=== PATIENT | female | born 1955 | race African-American/Black ===

== ENCOUNTER 2025-06-25 10:54 | Outpatient (REF) | payer MEDICAID, SELFPAY ==
[2025-06-25 17:53] LABS: MANUAL DIFF FLAG NO
[2025-06-25 18:23] LABS: Appearance Urine Clear; Glucose Urine UA Negative (Negative); PH 5.5 (5.0-9.0); Specific Gravity - Urine 1.015 (1.005-1.025); UMIC TRIGGER UACC YES
[2025-06-25 18:31] LABS: Hematocrit 35.8 % (37.0-47.0); Hemoglobin 11.7 g/dl (12.0-16.0); Imm Gran Abs Auto 0.18 X10*3/uL (0.00-0.03); Imm Gran Pct Auto 1.6 % (0.0-0.4); Lymphocytes Absolute Auto 1.3 X10*3/uL (1.2-4.9); Mean Corpuscular HGB Conc 32.7 g/dl (31.0-35.0); Mean Corpuscular Hemoglobin 31.0 pg (27.0-33.0); Mean Corpuscular Volume 94.7 fL (80.0-98.0); NRBC Abs Auto 0.000 X10*3/uL (0.0-0.012); NRBC Pct Auto 0.0 /100WBC (0.0-0.2); Platelet Count 296 X10*3/uL (160-400); Red Blood Count 3.78 X10*6/uL (4.20-5.50); White Blood Count 11.0 X10*3/uL (4.8-10.8)
[2025-06-25 18:39] LABS: Alanine Aminotransferase 13 U/L (0-31); Albumin Level 4.5 g/dL (3.5-5.0); Alkaline Phosphatase 55 U/L (39-117); Anion Gap 13 (12-20); Aspartate Amino Transferase 34 U/L (5-31); Blood Urea Nitrogen 23 mg/dL (9-16); Calcium 9.6 mg/dL (8.4-10.2); Carbon Dioxide 23 mmol/L (22-29); Chloride 109 mmol/L (96-108); Cholesterol 160 mg/dL (<200); Estimated Glomerular Filt Rate > 60; HDL Cholesterol 42 mg/dL (>40); Magnesium 2.1 mg/dL (1.6-2.6); Potassium 4.4 mmol/L (3.3-5.1); Sodium 141 mmol/L (135-145); Total Protein 7.7 g/dL (6.5-8.0); Triglycerides 104 mg/dL (<150)
[2025-06-25 18:44] LABS: Vitamin B12 809 pg/mL (200-900)
[2025-06-25 19:05] LABS: UACC Culture Trigger YES
[2025-06-25 19:11] LABS: Free T4 (Free Thyroxine) 1.35 ng/dL (0.71-1.85)
[2025-06-27 03:52] LABS: Syphilis Screen Nonreactive (Nonreactive)
[2025-06-27 04:28] LABS: HBS Num1 20.76 mIU/mL (0-7.99); HBsAGNum1 0.48 S/CO (0.00-0.99); HIV Num 1 0.06 S/CO (0.00-0.99); Hepatitis B Surface Antigen Negative (Negative); ~HepC Num1 0.31 S/CO (0.00-0.79); ~Hepatitis B Surface Antibody REACTIVE (Nonreactive); ~Hepatitis C Antibody Nonreactive (Nonreactive)
[2025-07-01 14:23] LABS: VITAMIN D (1,25 OH) D3 60 pg/mL; Vit D (1,25-Dihydroxy) Total 60 pg/mL (18-72); Vitamin D (1,25 OH) D2 <8 pg/mL
== END 2025-06-25 10:55 | disposition home or self-care (01) ==
LOC: HO.HKASLDS 10:54
PROVIDERS: PCP Student in an Organized Health Care Education/Training Program; Visit Provider Student in an Organized Health Care Education/Training Program
DX: Z13.9 Encounter for screening, unspecified (principal); R10.9 Unspecified abdominal pain; R63.6 Underweight; Z59.41 Food insecurity; Z59.819 Housing instability, housed unspecified
CPT/HCPCS: 36415; 80053; 80061; 81001; 82607; 82652; 83036; 83735; 84439; 84443; 85025; 86706; 86780; 86803; 87086; 87340; 87389; 99202

== ENCOUNTER 2025-06-25 10:54 | Outpatient (AMB) | payer MEDICAID, SELFPAY ==
--- NOTE | 2025-06-25 11:19 | A.OFFPC_ITS ---
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 Left flank pain: The patient reports persistent left flank pain on her side, specified as the left flank. The pain is also located in her back and is described as moving and sometimes radiating down her leg. This is associated with pain in one hand and leg. Generalized weakness and deconditioning: The patient has difficulty with movement and requires help at home. Gastrointestinal and Genitourinary Symptoms: She was seen on April 10, 2025, for vomiting and diarrhea. She currently experiences nausea with vomiting when riding in a car. Her oral intake is poor, consisting mainly of bread three times a day. She reports frequent urination, about every 5 to 60 minutes, and also experiences tenesmus, a sensation of needing to defecate without being able to do so. Other complaints and history: The patient reports headaches. She is blind in her right eye. She immigrated from [facility] in April 2024 and previously lived in [place] before moving to the current state with her son. Surgical History: - No prior surgical history was discusse d. Medications: - No current medications were discussed. Social History: - Immigration: Patient is an immigrant f rom [place], [place], [place] in the [place]. - Language: Primary language is Occitan. - Living Situation: Recently moved from [place] to live with her son, Breanne. - Functional Status: Requires assistance at home and has difficulty with mobility. - Caregiver: Her son, Breanne, serves as h primary caregiver. - Social Support: The son reports signif icant stress related to caregiving and family conflict regarding the patient's living arrangements. - Nutrition: Reports poor appetite with a diet consisting mainly of bread, three times a day. Family History: - No family history was discussed. Diagnostic Results: - Previous visit documentation from 03/20 indicates a visit for vomiting and diarrhea. - Blood work was last performed on 01/08; results were not reviewed. Past Medical History - Blindness, right eye - History of visit for vomiting and diar yamilet on April 10, 2025 Health Maintenance - The patient is establishing care. - Comprehensive blood work has been orde red to establish a baseline. - Referrals will be placed for [facility] and community navigators to address social and functional needs. COUNT INCLUDES [facility] Medical History (Updated 07/01/25 @ 12:04 by Shiva Marquez MD) Underweight Family History (Updated 06/25/25 @ 11:20 by Linette Youssef CMA) Mother No problems noted. Father No problems noted. Social History Housing: Apartment Patient Tobacco Use Status: Never used Tobacco service: No Current occupational status: retired Cognitive needs: Yes (needs wheelchair, cane) Hearing needs: No Vision needs: No Questionnaire PHQ-9 Over the last 2 weeks, how often have you been bothered by any of the following problems? 1. Little interest or pleasure in doing things: more than half the days 2. Feeling down, depressed, or hopeless: more than half the days 3. Trouble falling or staying asleep, or sleeping too much: not at all 4. Feeling tired or having little energy: not at all 5. Poor appetite or overeating: nearly every day 6. Feeling bad about yourself - or that you are a failure or have let yourself or your family down: not at all 7. Trouble concentrating on things, such as reading the newspaper or watching television: not at all 8. Moving or speaking so slowly that other people could have noticed. Or the opposite - being so fidgety or restless that you have been moving around a lot more than usual: more than half the days 9. Thoughts that you would be better off or of hurting yourself in some way: not at all Total score: 9 Depression Screening Interpretation: Negative Depression Screening Done: Yes Source: Developed by Drs. Jus Jones, Ronaldo Kenny and colleagues, with an educational greg from [employer]. Thrive Questionnaire I am a: Parent/Caregiver What is your living situation today?: I have a steady place to live Within the past 12 months, did the food you bought not last and you didn't have the money to get more?: Sometimes True Within the past 12 months, did you worry whether your food would run out before you got money to buy more?: Sometimes True Do you have trouble paying for medicines?: No Do you have trouble getting transportation to medical appointments?: No Do you have trouble paying your heating and electricity bill?: No Do you have trouble taking care of your child, family member or friend?: I choose not to answer this question Are you currently unemployed and looking for a job?: I choose not to answer this question Are you interested in more education?: No Please select the resources that you would like help with: Housing/Alf, Food and Care for elder or disabled Currently or been in a relationship where the following occur: No concerns reported THRIVE Score: 2 AUDIT C Alcohol Use Questionnaire (AUDIT-C) 1. How often do you have a drink containing alcohol?: Never Total Score: 0 WILBERTO-7 AMB Questionnaire WILBERTO-7 Feeling nervous, anxious, or on edge: 2 = More than half the days Not being able to stop or control worryin = Several days Worrying too much about different things: 1 = Several days Trouble relaxin = Several days Being so restless that it is hard to sit still: 1 = Several days Becoming easily annoyed or irritable: 0 = Not at all Feeling afraid as if something awful might happen: 2 = More than half the days Total WILBERTO-7 score (0-4 normal; 5-9 mild; 10-14 moderate; 15-21 severe): 8 Source: Developed by Drs. Jus Jones, Ronaldo Kenny and colleagues, with an educational greg from [employer]. Review of Systems Narrative Review of Systems - Constitutional: Reports poor appetite and difficulty with mobility. - Eyes: Reports blindness in the right eye. - Gastrointestinal: Reports motion sickness with vomiting during car rides and a sensation of incomplete evacuation (tenesmus). She has a history of vomiting and diarrhea. - Genitourinary: Reports urinary frequency, occurring every 5 to 60 minutes. - Musculoskeletal: Reports side pain, back pain, and pain in one hand and leg. The side pain radiates down her leg. - Neurological: Reports headaches. 10-point ROS reviewed and negative except as noted in HPI Physical exam (Primary Care) Vital Signs: Last Vital Signs Temp 97.7 F 06/25/25 11:24 Pulse 82 06/25/25 11:24 Resp 16 06/25/25 11:24 BP 140/65 H 06/25/25 11:24 Pulse Ox 99 06/25/25 11:24 Oxygen Delivery Method Room Air 06/25/25 11:24 BMI result Body Mass Index 15.2 Tobacco/Smoking Status: Tobacco use Status Tobacco use date assessed 06/25/25 06/25/25 11:22 Patient Tobacco Use Status Never used Tobacco 06/25/25 11:22 PHQ-9: PHQ-9 Score PHQ-9: Total score 9 06/28/25 10:55 Depression Screening Interpretation: Negative Currently or been in a relationship where the following occur: No concerns reported Narrative Physical Exam General: Well-appearing, in no acute distress. Vital signs: Within normal limits. HEENT: Normocephalic, atraumatic. PERRLA, EOMI. Conjunctiva clear, sclera anicteric. Oropharynx clear, mucous membranes moist. TMs intact bilaterally. Note: Patient is blind in the right eye. Neck: Supple, no lymphadenopathy, no thyromegaly, no JVD or carotid bruits. Cardiovascular: RRR, normal S1/S2, no murmurs, rubs, or gallops. Peripheral pulses 2+ and symmetric. No edema. Respiratory: Lungs clear to auscultation bilaterally, no wheezes, rales, or rhonchi. Normal effort. Abdomen: Soft, non-tender, non-distended. Normoactive bowel sounds. No hepatosplenomegaly, no masses. Reports left side flank pain that travels and occasional back pain. MSK: Full range of motion, no joint swelling or deformity. Normal gait. Reports difficulty moving and requires assistance at home. Skin: Warm, dry, intact. No rashes, lesions, or pallor. Neuro: Alert and oriented x3. Cranial nerves II-XII intact. Strength 5/5 throughout. Sensation intact. Reflexes 2+ symmetric. Normal coordination and gait. Psych: Appropriate mood and affect. Normal judgment and insight. Coding Level of Care Code New Pt Level 4 (51982) Diagnoses Left flank pain R10.9 Food insecurity Z59.41 Housing insecurity Z59.819 Underweight R63.6 Assessment & Plan Assessment & Plan (1) Left flank pain: Code(s): R10.9 - Unspecified abdominal pain (2) Food insecurity: Code(s): Z59.41 - Food insecurity (3) Housing insecurity: Code(s): Z59.819 - Housing instability, housed unspecified (4) Underweight: Code(s): R63.6 - Underweight Category: Medical Plan Consent Verbal consent was obtained from the patient's son, acting as a social media marketing specialist and proxy, for a physical examination and to proceed with blood work. He also consented to have the patient's prior medical documentation scanned into the electronic medical record. Patient was informed and verbally consented to the use of an ambient scribe for clinic note documentation during this visit. Plan 1. Left Flank Pain, Unspecified - Will order blood work for further investigation. - Plan to review previous medical records once they are scanned into the system. - Patient to follow up in two weeks to discuss results. 2. Need For Assistance With Personal Care - Will place a referral for AUTOMATIC LEHR OPERATOR ([employer]) services to provide support at home. - Will place a referral for community navigators to contact the family and provide additional services. 3. Establishment Of Care - Will obtain comprehensive blood work. - Will review prior medical documentation from her home country and previous [place] providers. - Patient will follow up in two weeks. Discussion Notes I discussed the plan with the patient's son, who translated for the patient. I explained that we would start by ordering blood work to assess her overall health. I informed him that we would scan her previous medical records to better understand her history. Given her need for assistance at home, I have initiated referrals for AUTOMATIC LEHR OPERATOR services and to community navigators for additional support, and advised him to stay by the phone for calls regarding these services. A follow-up visit is scheduled in two weeks to review the results and determine the next steps in her care. Patient Instructions - Go to the lab to have blood work done today. - We will scan your previous medical documents into our system for review. - Please wait by your phone for calls from our partners who will help arrange for home assistance (AUTOMATIC LEHR OPERATOR services) and other community services. - Please return for a follow-up visit in two weeks to discuss your lab results. Medical Decision Making The patient is a 69-year-old female, new to the practice, presenting with a constellation of non-specific symptoms including left flank pain, weakness, headaches, and poor nutrition. The clinical picture is complicated by a language barrier, with her son acting as social media marketing specialist, and a complex social situation as a recent immigrant with debility. The initial approach is to establish a baseline health status and investigate potential organic causes for her symptoms. Comprehensive blood work is ordered to screen for metabolic, infectious, or hematologic abnormalities that could explain her weakness, pain, and poor appetite. Given her functional decline and need for assistance, referrals for AUTOMATIC LEHR OPERATOR and community navigator services are critical to ensure her safety and pro vide support. Reviewing her prior medical records is essential for continuity of care. The plan is to reassess in two weeks with the lab results to formulate a more targeted diagnostic and treatment plan. Total time spent caring for the patient today was 30 minutes. This includes time spent before the visit reviewing the chart, time spent documenting, and time spent reviewing laboratory results, diagnostic imaging, medications, performing a medically necessary evaluation, counseling on diagnoses, care coordination, ordering appropriate tests, ordering appropriate medications, review of tests performed by other providers, reporting test results with the patient, communication with other healthcare providers. Orders: Orders Complete Blood Count Auto Diff 06/25/25 Z13.9 - Encounter for screening, unspecified Comprehensive Met. Panel 06/25/25 Z13.9 - Encounter for screening, unspecified Hepatitis B Surface Antibody 06/25/25 Z13.9 - Encounter for screening, unspecified Hepatitis C Antibody 06/25/25 Z13.9 - Encounter for screening, unspecified Vitamin D 1,25 dihydroxy 06/25/25 Z13.9 - Encounter for screening, unspecified Hemoglobin A1c 06/25/25 Z13.9 - Encounter for screening, unspecified Hepatitis B Surface Antigen 06/25/25 Z13.9 - Encounter for screening, unspecified HIV Ab/Ag 06/25/25 Z13.9 - Encounter for screening, unspecified Lipid Panel 06/25/25 Z13.9 - Encounter for screening, unspecified Magnesium 06/25/25 Z13.9 - Encounter for screening, unspecified Syphilis Screen 06/25/25 Z13.9 - Encounter for screening, unspecified TSH reflex Free T4 06/25/25 Z13.9 - Encounter for screening, unspecified UA CC w/rflx Micro + Cult 06/25/25 Z13.9 - Encounter for screening, unspecified Vitamin B12 06/25/25 Z13.9 - Encounter for screening, unspecified
[2025-06-25 11:24] VITALS: BP 140/65; PULSE 82; RESP 16; TEMP 36.5; O2SAT 99; BMI 15.2
--- OUTSIDE RECORDS SUMMARY | 2025-06-25 13:08 | XMS_ITS | Clinical Summary ---
Author Organization [facility] Address [address] [place] [address] Care Team Providers Care Ward Supervisor Name Role Phone Unavailable Primary Care Provider Unavailabl e Source Comments PLEASE NOTE, if this patient is a minor, it may be UNLAWFUL to discuss sensitive information that is contained in these records (such as FAMILY PLANNING, MENTAL HEALTH or SUBSTANCE ABUSE) with the minor patient's parent or other person without the patient's specific authorization.[facility] Medications MISCELLANEOUS MEDICAL SUPPLY MISCIndication s:Underweight by miscellaneous route 2 (two) times daily Dx: underweight, HORTENCIA: 99, Supply: nutritional supplement. 100 Each 5 5 Active acetaminophen (TYLENOL) 325 mg tabletIndicati ons:Generalize d pain Take 2 Tablets by mouth every 6 (six) hours as needed for pain. 30 Tablet 5 Active TOBRADEX 0.3-0.1 % ophthalmic ointmentIndica tions:Burning sensation of eye Place into both eyes 3 (three) times daily. 3.5 g 2 5 Active loratadine (CLARITIN) 10 mg tabletIndicati ons:Burning sensation of eye TAKE 1 TABLET BY MOUTH ONCE DAILY NEEDED FOR ALLERGIES 90 Tablet 5 Active Active Problems Problem Noted Date Diagnosed Date Body mass index (BMI) less than 16.5 03/16/2025 Nephrolithiasis 01/08/2025 Primary hypertension 01/08/2025 Impaired vision 01/08/2025 Resolved Problems Problem Noted Date Diagnosed Date Resolved Date Pain in eye 01/08/2025 01/08/2025 Social History Tobacco Use Types Packs/Day Years Used Date Smoking Tobacco: Never Assessed Comments Unknown Sex and Gender Information Value Date Recorded Sex Assigned at Female 01/08/2025 8:20 AM PDT Legal Sex Female 7:03 AM PDT Gender Identity Female 01/08/2025 8:20 AM PDT Sexual Orientation Straight 01/08/2025 8: 20 AM PDT Last Filed Vital Signs Vital Sign Reading Time Taken Comments Blood Pressure 112/58 01/08/2025 9:31 AM EDT Pulse 89 01/08/2025 9:31 AM EDT Temperature 36.7 C (98.1 F) 01/08/2025 9:31 AM EDT Respiratory Rate 16 01/08/2025 9:31 AM EDT Oxygen Saturation 99% 01/08/2025 9:31 AM EDT Inhaled Oxygen Concentration - - Weight 29.8 kg (65 lb 12.8 oz) 01/08/2025 9:31 A M EDT Height 144.8 cm (4' 9 ) 01/08/2025 9:31 AM EDT Body Mass Index 14.24 01/08/2025 9:31 AM EDT Plan of Treatment Health Maintenance Due Date Last Done Comments Tobacco Screening 1954 Imm-DTaP/Tdap/Td (1 - Tdap) 1973 Breast Cancer Screening (Mammogram) 1994 CT Colonography 1999 Colonoscopy 1999 Colorectal Cancer Screening 1999 FIT/gFOBT 1999 Fecal DNA 1999 Flexible Sigmoidoscopy 1999 Imm-Pneumococcal 50+ (1 of 1 - PCV) 2004 Imm-Zoster, Recombinant (1 of 2) 2004 Bone Density Screening 2019 Falls Prevention 2019 Alcohol and Drug Screen 2024 Depression Annual Screen 2024 Ulb-VTEUT-33 ( season) 2025 Imm-Influenza (#1) 2025 Diabetes Screening 01/09/2028 01/08/2025, 0 01/08/2025, 11/14/2024 Lipid Screening 01/09/2028 01/08/2025 Hepatitis B Screening Completed 01/08/2025, 025 Hepatitis C Screening Completed 01/08/2025 Procedures Procedure Name Priority Date/Time Associated Diagnosis Comments OTHER ORDERS SCANNED DOCUMENT 04/30/2025 3:00 AM EDT HEPATITIS B SURF ANTIBODY HBSAB Routine 01/08/2025 10:48 AM EDT Screening for viral disease HEPATITIS C AB W/RFLX HCV RNA, QT, RT PCR Routine 01/08/2025 10:48 AM EDT Screening for viral disease HEMOGLOBIN GLYCOSYLATED A1C Routine 01/08/2025 10:48 AM EDT Weakness LIPID PANEL Routine 01/08/2025 10:48 AM EDT Weakness from Last 3 Months or Most Recently Relevant to Health Maintenance Results * OTHER ORDERS SCANNED DOCUMENT (04/30/2025 3:00 AM EDT) 04/30/2025 3:00 AM EDT Juan Carlos Baker CNC MACHINE OPERATOR SCAN OTHER ORDERS Final R esult * HEPATITIS C AB W/RFLX HCV RNA, QT, RT PCR Routine (01/08/2025 10:48 AM EDT) HEPATITIS C ANTIBODY NON-REACT STELLA NON-REACT STELLA [facility] Comment: HCV antibody was non-reactive. There is no laboratory evidence of HCV infection. In most cases, no further action is required. However, if recent HCV exposure is suspected, a test for HCV RNA (test code 27873) is suggested. For additional information please refer to http://education.MinuteBuzz.Studio Bloomed/faq/NNA35p8 (This link is being provided for informational/ educational purposes only.) Blood Blood / Unknown 01/08/2025 1 0:48 AM EDT 01/08/2025 10:49 AM EDT us Divya Bates PA-C LAB - BLOOD DRAW Edited Resu lt - Final [facility] [address], [employer] [address] [address] * (ABNORMAL) HEPATITIS B SURF ANTIBODY HBSAB Routine (01/08/2025 10:48 AM EDT) Pathologist [facility] HEPATITIS B SURFACE ANTIBODY QL REACTIVE( A) NON-REACT STELLA [facility] Blood Blood / Unknown 01/08/2025 1 0:48 AM EDT 01/08/2025 10:49 AM EDT us Divya Bates PA-C LAB - BLOOD DRAW Edited Resu lt - Final Performing Organization Address [facility]/ZIP Co de Phone Number [place] [place] [address], [employer] [address] [id number] * HEMOGLOBIN GLYCOSYLATED A1C Routine (01/08/2025 10:48 AM EDT) [facility] HEMOGLOBIN A1C 5.2 <5.7 % [facility] Comment: For the purpose of screening for the presence of diabetes: <5.7% Consistent with the absence of diabetes 5.7-6.4% Consistent with increased risk for diabetes (prediabetes) > or =6.5% Consistent with diabetes This assay result is consistent with a decreased risk of diabetes. Currently, no consensus exists regarding use of hemoglobin A1c for diagnosis of diabetes in children. According to [place] Diabetes Association (ADA) guidelines, hemoglobin A1c <7.0% represents optimal control in non- diabetic patients. Different metrics may apply to specific patient populations. Standards of Medical Care in Diabetes(ADA). Blood Blood / Unknown 01/08/2025 1 0:48 AM EDT 01/08/2025 10:49 AM EDT us Divya Bates PA-C LAB - BLOOD DRAW Edited Resu lt - Final [facility] [address] [address], [email or web address] [address] [address] * (ABNORMAL) LIPID PANEL Routine (01/08/2025 10:48 AM EDT) CHOLESTEROL, TOTAL 154 <200 mg/dL [facility] HDL CHOLESTEROL 41(L) > OR = 50 mg/dL [facility] TRIGLYCERIDES 85 <150 mg/dL [facility] LDL-CHOLESTEROL 95 99 mg/dL (calc) [facility] Comment: Reference range: <100 Desirable range <100 mg/dL for primary prevention; <70 mg/dL for patients with CHD or diabetic patients with > or = 2 CHD risk factors. LDL-C is now calculated using the Juan calculation, which is a validated novel method providing better accuracy than the Friedewald equation in the estimation of LDL-C. Varun SS et al. ARRON. 2013;310(19): 3861-8081 (http://education.Parcel/faq/UOY640) CHOL/HDLC RATIO 3.8 <5.0 (calc) [facility] NON-HDL CHOLESTEROL 113 <130 mg/dL (calc) [facility] Comment: For patients with diabetes plus 1 major ASCVD risk factor, treating to a non-HDL-C goal of <100 mg/dL (LDL-C of <70 mg/dL) is considered a therapeutic option. Blood Blood / Unknown 01/08/2025 1 0:48 AM EDT 01/08/2025 10:49 AM EDT Divya Bates PA-C LAB - BLOOD DRAW Final Resul t [facility] [address] [address], [facility] [address] [place] [address] from Last 3 Months or Most Recently Relevant to Health Maintenance Insurance [place] MEDICAID
--- OUTSIDE RECORDS SUMMARY | 2025-06-25 13:08 | XMS_ITS | Patient Health Record ---
Author Organization [facility] Address [address] [place] [address] Care Team Providers Care Bacon Skinner Name Role Phone Angely Junior Primary Care Provider DR. 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) Referral Organization [facility] Referring Provider First Name Angely Referring Provider Last Name Vernon Referring Provider Speciality [facility] Referred Provider Pulmonary MedicineIndra Referred Provider Specialty Pulmonary [facility] General Notes Kristan Sevilla 07/22/2024 02:09:39 PM >Referral sent to Pulm (P: [phone]) Referral Priority Routine Immunizations Vaccine Route Administration Date Status Comme nts Tdap (Boostrix) Prefilled syringe Unknown 07/05/2016 Ad ministered Tdap (Boostrix) Prefilled syringe Unknown 08/13/2016 Ad ministered Tdap (Boostrix) Prefilled syringe Unknown 06/29/2024 Ad ministered Moderna [phone] fall formu lation 12+ years Unknown 06/15/2024 Administered IPV Unknown 05/24/2022 Administered IPV Unknown 06/15/2024 Administered Influenza (Fluzone) 36 month s and older (VFC) Unknown 06/15/2024 Administered Hepatitis B Vaccine, Adult D ose, IM Use Unknown 07/05/2016 Administered Hepatitis B Vaccine, Adult D ose, IM Use Unknown 08/13/2016 Administered Hepatitis B Vaccine, Adult D ose, IM Use Unknown 12/10/2016 Administered Social History Tobacco Use: Social History Observation Description Date Details (start date - stop date) Never Smoker NA - NA Sex Assigned At : Social History Observation Description Sex Assigned At Female Social History Social Determinants Social Info Question Answer Notes PRAPARE Date Completed/Updated: 07/07/2024 What is your current housing situation? I do not have housing (staying with others, in a hotel, in a skilled nursing, living outside on the street, on a beach, or in a park) Are you worried about losing your housing? No What is the highest level of school that you have finished? Less than a high school degree What is your current work situation? Oth erwise unemployed but not seeking work (ex. 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 Check all that apply I do not have problems meeting my needs Has lack of transportation k ept you from medical appointments, meetings, work or from getting things needed for daily living? No How often do you see or talk to people that you care about and feel close to? (For example: talking to friends on the phone, visiting friends or family, going to jewish or club meetings) 3 to 5 times a week How stressed are you? Stress is when someone feels tense, nervous, anxious, or cant sleep at night because their mind is troubled A little bit In the past year have you sp ent more than 2 nights in a row in a long-term, senior care, mcc center, or juvenile correctional facility? No Are you a refugee? Yes What country are you from? Country Other than the [place] (please write in notes) Please specify: [place] Do you feel physically and e motionally safe where you currently live? Yes In the past year, have you b een afraid of your partner or ex-partner? No PRAPARE Score: 11 Community Health Social Info Question Answer Notes CHW Resources Units 1 Introduced mys elf to the PT and explained what a CHW and how a CHW can be of assistance to her. The PT and her son Mela Torre also a PT, are part of the [facility] refugee program and have all of their SDNM needs met. User Roseline Drug/Alcohol: Social Info Question Answer Notes AUDIT-C (Standard) Did you have a drink containing alcohol in the past year? No Points 0 Interpretation Negative DAST-10 (2020 Edition) 1. Have you used drugs other than those required for medical reasons? No 2. Do you abuse more than one drug at a time? No 3. Are you always able to stop using drugs when you want to? No 4. Have you had blackouts or flashbacks as a result of drug use? No 5. Do you ever feel bad or guilty about your kemal g use? No 6. Does your spouse (or pare nts) ever complain about your involvement with drugs? No 7. Have you neglected your family because of you r use of drugs? No 8. Have you engaged in illegal activities in ord er to obtain drugs? No 9. Have you ever experienced withdrawal symptoms (felt sick) when you stopped taking drugs? No 10. Have you had medical pro blems as a result of your drug use (e.g., memory loss, hepatitis, convulsions, bleeding etc.)? No Results: 1 Interpretation of Score: Low level Tobacco Use: Social Info Question Answer Notes Tobacco Control (Standard) Tobacco use: Nonsmoker Problems Problem Type SNOMED Code ICD Code Onset Dates Problem Status W/U Status Risk Notes Problem Leukocytosis (118685271) Elevated WBC count (D72.829) Active confirmed Apr 2024 WB C 14. recheck today. no fevers. 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 Blue film over eye with cut noted in left eye. referral to Opthamology. positive quantiferon gold (still waiting on chest xray read as of 07/07/24); rpr and hiv testing was negative. 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 XRAY results show no active TB - will need treated for latent TB Vital Signs Heart Rate 92 /min 07/07/2024 Temperature 97.8 degrees Fahrenheit 07/07/2024 Respiratory Rate 16 /min 07/07/2024 Blood pressure diastolic 85 mm Hg 07/07/2024 Oximetry 100 % 07/07/2024 Height 58 in 07/07/2024 Blood pressure systolic 146 mm Hg 07/07/2024 Weight 60.8 lbs 07/07/2024 BMI 12.71 kg/m2 07/07/2024 Encounters Encounter Location Date Provider Diagnosis [facility] [address] [place] [address] 07/07/2024 Angely Junior Eye abnormalities Q15.9 ; Positive QuantiFERON-TB Gold test R76.12 and BMI less than 19,adult Z68.1 [facility] [address] [place] [address] 07/28/2024 Angely Junior [facility] [address] [place] [address] 07/21/2024 Angely Junior Positive QuantiFERON-TB Gold test R76.12 [facility] [address] [place] [address] 07/02/2024 Angely Junior Assessments Encounter Date Diagnosis (ICD Code) Assessment Notes Treatment Notes Treatment Clinical Notes Section Notes 07/07/2024 Eye abnormalities (ICD-10 - Q15.9) pt with prior eye surgery per son. Blue film over eye with cut noted in left eye. referral to Opthamology. positive quantiferon gold (still waiting on chest xray read as of 07/07/24); rpr and hiv testing was negative. appt made with optometry 07/07/24 07/07/2024 Positive QuantiFERON-TB Gold test (ICD-10 - R76.12) gave pt a CHest Xray Rx - 2nd one. They state they did get it done as of 07/07/24; read is still pending 07/21/2024 Positive QuantiFERON-TB Gold test (ICD-10 - R76.12) XRAY results show no active TB - will need treated for latent TB 07/07/2024 BMI less than 19,adult (ICD-10 - Z68.1) Plan Of Treatment Pending Test Test Name Order Date X ray : Chest with 2 views 05/06/2024 Chest X-ray PA and lateral 06/02/2024 Insurance Providers Payer Name Payer Address Payer Phone Subscriber Number Group Number Insured Name Patient Relationship to Insured Coverage Start Date Coverage End Date Medicaid of [place] - MEDICAL [address] [place] [id number] Esther Torre Self - patient is the insured 4 Medical (General) History Medical History History ICD Code blindness chronic pain Hospitalization History Reason Date(Month/Year) eye surgery 2018
== END 2025-06-25 12:07 | disposition home or self-care (01) ==
LOC: HO.HMCFMS 10:55
PROVIDERS: Visit Provider Student in an Organized Health Care Education/Training Program
DX: R10.9 Unspecified abdominal pain (principal); Z59.41 Food insecurity; Z59.819 Housing instability, housed unspecified; R63.6 Underweight

== ENCOUNTER 2025-07-09 09:23 | Outpatient (AMB) | payer MEDICAID, SELFPAY ==
--- NOTE | 2025-07-09 09:25 | A.OFFPC_ITS ---
Vital Signs 07/09/25 09:30 Height 4 ft 9 in Weight 70 lb BMI 15.1 BP 124/54 L Blood Pressure Location Lt brachial Position Sitting Pulse 83 Pulse Source Pulse Oximeter Temp 98.0 F Temp Source Oral Pulse Oximetry (%) 99 Oxygen Delivery Method Room Air Intake Visit Reasons: 2 wk - lab review Intake Note: has had left upper back pain and bilateral eye pain Accompanied by: Son Allergies No Known Allergies Allergy (Verified 07/09/25 09:25) Tobacco use date assessed: 07/09/25 Fall risk assessment: 1 Fall in past year Last assessed Fall Risk: 07/09/25 Dental Screening Dental Screen Date: 07/09/25 Did you have a dental visit in the last 12 months?: No HPI HPI Comments History of Present Illness Details History of Present Illness The patient is a 69 year old individual presenting for a follow-up visit for management of chronic conditions, review of lab results, and coordination of home healthcare services. Anemia: The patient has a history of mild anemia, which is believed to be secondary to poor diet. Glaucoma: The patient has a history of glaucoma, diagnosed around 2013, and underwent two unsuccessful surgeries for the condition. This has resulted in complete vision loss in the right eye and minimal vision in the left eye. The patient reports associated eye pain, which was previously managed with an eye medication that has now been finished. The patient has not been evaluated by an network firewall engineer since arriving in this country. Urinary Frequency: The patient has experienced urinary frequency, needing to urinate as often as every 15-20 minutes, for the past three years. This is associated with a sensation of needing to defecate without any result. Subclinical Hypothyroidism: Recent lab results suggest the patient may have subclinical hyperthyroid Hypertension: The patient had high blood pressure at a previous visit, but it is now in the normal range. Surgical History: - Two unsuccessful glaucoma surgeries (c irca 2013) Medications: - Unspecified eye medication for pain du e to glaucoma, which was recently finished. Social History: - Nutrition: The patient is not eating w ell and has a poor diet. - Functional Status: The patient needs a ssistance, and arrangements for home healthcare and NEW PATIENT ESCORT services are being made. - Other: The patient experiences motion sickness with vomiting when traveling in a car. Diagnostic Results: - Labs: The patient has mild anemia. - Labs: Sodium, potassium, kidney functi on, liver function, triglycerides, LDL cholesterol, vitamin B12, and vitamin D levels are good. - Labs: Thyroid function tests suggest p ossible mild hypothyroidism. - Labs: Hepatitis B, Hepatitis C, syphil is, and HIV tests are negative. Past Medical History - Glaucoma diagnosed circa 2013, with tw o subsequent unsuccessful surgeries. - History of hypertension. - Anemia, likely related to diet. - Possible subclinical hypothyroidism. Health Maintenance - Home health services: A referral will be made for a community nurse navigator to discuss available services, and the process for NEW PATIENT ESCORT services has been initiated. - Diet: Recommended increasing intake of iron-rich foods like broccoli and beans. [facility], [facility] Medical History (Updated 07/09/25 @ 12:55 by Shiva Marquez MD) Urinary frequency Subclinical hyperthyroidism Glaucoma Iron deficiency anemia Underweight Family History Mother No problems noted. Father No problems noted. Social History Housing: Apartment Patient Tobacco Use Status: Never used Tobacco service: No Current occupational status: retired Cognitive needs: Yes (needs wheelchair, cane) Hearing needs: No Vision needs: No Questionnaire PHQ-9 Over the last 2 weeks, how often have you been bothered by any of the following problems? 1. Little interest or pleasure in doing things: more than half the days 2. Feeling down, depressed, or hopeless: more than half the days 3. Trouble falling or staying asleep, or sleeping too much: not at all 4. Feeling tired or having little energy: not at all 5. Poor appetite or overeating: nearly every day 6. Feeling bad about yourself - or that you are a failure or have let yourself or your family down: not at all 7. Trouble concentrating on things, such as reading the newspaper or watching television: not at all 8. Moving or speaking so slowly that other people could have noticed. Or the opposite - being so fidgety or restless that you have been moving around a lot more than usual: more than half the days 9. Thoughts that you would be better off or of hurting yourself in some way: not at all Total score: 9 Depression Screening Interpretation: Positive Depression Screening Done: Yes Source: Developed by Drs. Jus Jones, Brie Metz, Ronaldo Dai and colleagues, with an educational greg from [employer]. Thrive Questionnaire Date Thrive assessed: 07/09/25 I am a: Parent/Caregiver What is your living situation today?: I have a steady place to live Within the past 12 months, did the food you bought not last and you didn't have the money to get more?: Sometimes True Within the past 12 months, did you worry whether your food would run out before you got money to buy more?: Sometimes True Do you have trouble paying for medicines?: No Do you have trouble getting transportation to medical appointments?: No Do you have trouble paying your heating and electricity bill?: No Do you have trouble taking care of your child, family member or friend?: I choose not to answer this question Are you currently unemployed and looking for a job?: I choose not to answer this question Are you interested in more education?: No THRIVE Score: 2 AUDIT C Alcohol Use Questionnaire (AUDIT-C) 1. How often do you have a drink containing alcohol?: Never Total Score: 0 WILBERTO-7 AMB Questionnaire WILBERTO-7 Date WILBERTO - 7 assessed: 07/09/25 Feeling nervous, anxious, or on edge: 2 = More than half the days Not being able to stop or control worryin = Several days Worrying too much about different things: 1 = Several days Trouble relaxin = Several days Being so restless that it is hard to sit still: 1 = Several days Becoming easily annoyed or irritable: 0 = Not at all Feeling afraid as if something awful might happen: 2 = More than half the days Total WILBERTO-7 score (0-4 normal; 5-9 mild; 10-14 moderate; 15-21 severe): 8 Source: Developed by Drs. Jus Jones, Brie Metz, Ronaldo Dai and colleagues, with an educational greg from [employer]. Review of Systems Narrative Review of Systems - Constitutional: Reports poor appetite. - Eyes: Reports eye pain, blindness in the right eye, and severely limited vision in the left eye. - Gastrointestinal: Reports vomiting when in a car. - Reports frequent sensation of needing to defecate without passage of stool. - Genitourinary: Reports urinary frequency every 15-20 minutes for the last 3 years. - Neurological: Reports headaches. - Endocrine: Denies symptoms of hypothyroidism. 10-point ROS reviewed and negative except as noted in HPI Physical exam (Primary Care) Vital Signs: Last Vital Signs Temp 98.0 F 07/09/25 09:30 Pulse 83 07/09/25 09:30 BP 124/54 L 07/09/25 09:30 Pulse Ox 99 07/09/25 09:30 Oxygen Delivery Method Room Air 07/09/25 09:30 BMI result Body Mass Index 15.1 Tobacco/Smoking Status: Tobacco use Status Tobacco use date assessed 07/09/25 07/09/25 09:26 Patient Tobacco Use Status Never used Tobacco 07/09/25 09:26 PHQ-9: PHQ-9 Score PHQ-9: Total score 9 07/09/25 11:03 Depression Screening Interpretation: Positive Thrive Assessment: Date of Thrive Assessment Date Thrive assessed 07/09/25 07/09/25 09:26 Narrative Physical Exam General: frail Vital signs: Blood pressure is now normal, improved from last time. HEENT: Normocephalic, atraumatic. PERRLA, EOMI. Conjunctiva clear, sclera anicteric. Oropharynx clear, mucous membranes moist. TMs intact bilaterally. Patient reports eye pain and has a history of glaucoma with two unsuccessful surgeries. Vision is impaired; cannot see out of the right eye and has limited vision in the left eye. Neck: Supple, no lymphadenopathy, no thyromegaly, no JVD or carotid bruits. Cardiovascular: RRR, normal S1/S2, no murmurs, rubs, or gallops. Peripheral pulses 2+ and symmetric. No edema. Respiratory: Lungs clear to auscultation bilaterally, no wheezes, rales, or rhonchi. Normal effort. Abdomen: Soft, non-tender, non-distended. Normoactive bowel sounds. No hepatosplenomegaly, no masses. MSK: Full range of motion, no joint swelling or deformity. Normal gait. Skin: Warm, dry, intact. No rashes, lesions, or pallor. Neuro: Alert and oriented x3. Cranial nerves II-XII intact. Strength 5/5 throughout. Sensation intact. Reflexes 2+ symmetric. Normal coordination and gait. Psych: Appropriate mood and affect. Normal judgment and insight. Office Procedures Flu Questionnaire Does the patient have a severe egg allergy?: No Does the patient have severe life threatening allergies?: No Does the patient have a fever or illness today?: No Has the patient ever had Guillain-Von Ormy Syndrome?: No Has the patient ever had any past reaction to a flu shot?: No Immunizations Fluarix [id number] (PF) 45 mcg (15 mcg x 3)/0.5 mL IM syringe Performing Provider: Shiva Marquez MD Performing Location: [facility] Administered by: Linette Youssef CMA on 07/09/25 11:03 Dose Route Admin Location Dispensed Lot Number Expiration Date NDC Program Director [employer] 0.5 mL IM Left Deltoid 0.5 mL [id number] 02/15/26 39629-925-15 [employer] VIS Given Date VIS Provided VIS Publication Date 07/09/25 Single Vaccine 24 Eligibility Eligibility Date Funding Source Not [facility] Eligible 07/09/25 Private Coding Level of Care Code Est Pt Level 3 (90524) Diagnoses Iron deficiency anemia D50.9 Glaucoma H40.9 Underweight R63.6 Subclinical hyperthyroidism E05.90 Urinary frequency R35.0 Housing insecurity Z59.819 Food insecurity Z59.41 Assessment & Plan Assessment & Plan (1) Iron deficiency anemia: Code(s): D50.9 - Iron deficiency anemia, unspecified Category: Medical (2) Glaucoma: Code(s): H40.9 - Unspecified glaucoma Category: Medical (3) Underweight: Code(s): R63.6 - Underweight Category: Medical (4) Subclinical hyperthyroidism: Code(s): E05.90 - Thyrotoxicosis, unspecified without thyrotoxic crisis or storm Category: Medical (5) Urinary frequency: Code(s): R35.0 - Frequency of micturition Category: Medical (6) Housing insecurity: Code(s): Z59.819 - Housing instability, housed unspecified (7) Food insecurity: Code(s): Z59.41 - Food insecurity Plan Consent Patient was informed and verbally consented to the use of an ambient scribe for clinic note documentation during this visit. Plan 1. Anemia - Prescribed iron to be taken once daily, either one hour before or two hours after eating. - Prescribed Vitamin C to be taken with food to improve iron absorption. - Counseled that iron may cause constipation and dark stools; advised increasing water and fiber intake. - Prescribed Miralax to be used as needed for constipation. - Advised incorporating iron-rich foods such as broccoli and beans into the diet. 2. Glaucoma - Issued a referral to Ophthalmology for further evaluation and management. - Prescribed a refill of the patient's eye medication for pain, to be used three times a day. 3. Subclinical Hyperthyroid - improve nutrition status - due to age and current symtoms of underweight will refer to endocrine 4. Need For Personal Care Assistance - Will arrange for a community nurse navigator to meet with the patient and family to discuss available services. - Confirmed that the process for NEW PATIENT ESCORT (Relocation Services Specialist) services has been started and the agency will contact the family. Discussion Notes I discussed the lab results with the patient and family, noting the mild anemia is likely due to diet, and I prescribed iron and vitamin C. . We reviewed the history of glaucoma, subsequent vision loss, and eye pain, and I provided a referral to ophthalmology and refilled the eye medication for pain relief. I advised on managing potential constipation from iron with increased fluids, fiber, and Miralax if needed. I confirmed that arrangements for a community nurse navigator and NEW PATIENT ESCORT services are in process to provide additional support at home. Patient Instructions - Take one iron pill daily, either 1 hour before you eat or 2 hours after you eat. - Take the vitamin C pill with food. - The iron may make your stool dark, which is a normal side effect. - To prevent constipation from the iron, drink a lot of water and eat foods with fiber. - If you do get constipated, take Miralax at night and in the morning until you have a bowel movement. - Use the prescribed eye drops three times a day for eye pain. - Eat more iron-rich foods, like broccoli and beans. - You will receive a call to set up services with a Relocation Services Specialist (NEW PATIENT ESCORT). - Please schedule an appointment with the eye doctor (Ophthalmology) using the referral provided. - please attend endocrinology referral Medical Decision Making The patient is a 69-year-old individual presenting for follow-up and coordination of care. Lab review showed a mild anemia, attributed to poor diet, for which iron and vitamin C supplementation was initiated with dietary counseling. Lab results were also suggestive of subclinical hyperthyroid; The patient's chronic glaucoma with significant visual impairment and pain requires specialist management, prompting an ophthalmology referral and a prescription for analgesic eye drops for symptomatic relief. The patient's blood pressure is now controlled. Given the patient's need for assistance, I have arranged for a community nurse navigator to connect the family with services and have confirmed the initiation of the NEW PATIENT ESCORT process. Total Time Statement 20 min Total time spent caring for the patient today includes pre-visit chart review, documentation, review of laboratory and diagnostic imaging results, medication reconciliation, medically necessary evaluation, counseling on diagnoses, care coordination, ordering appropriate tests and medications, review of tests performed by other providers, reporting test results to the patient, and co mmunication with other healthcare providers. Orders: Orders Influenza [id number] Immunization Today Z23 - Encounter for immunization Referrals Ophthalmology Referral H40.9 - Unspecified glaucoma Nurse Navigator Referral R63.6 - Underweight, Z59.41 - Food insecurity, Z59.819 - Housing instability, housed unspecified Endocrinology Referral E05.90 - Thyrotoxicosis, unspecified without thyrotoxic crisis or storm Medications: New ascorbic acid (vitamin C) 500 mg PO DAILY 90 tabs 0RF ferrous sulfate 325 mg PO DAILY 90 tabs 0RF D50.9 - Iron deficiency anemia, unspecified, R63.6 - Underweight tobramycin-dexamethasone 0.3-0.1 % space evenly during waking hours 1 appl ophthalmic (eye) TID 3.5 grams 0RF 14 days H40.9 - Unspecified glaucoma polyethylene glycol 3350 17 grams PO BID 476 grams 0RF
[2025-07-09 09:30] VITALS: BP 124/54; PULSE 83; TEMP 36.7; O2SAT 99; BMI 15.1
--- OUTSIDE RECORDS SUMMARY | 2025-07-09 09:49 | XMS_ITS | Patient Health Record ---
Author Organization [facility] Address [address] [place] [address] Care Team Providers Care Dough Molder Name Role Phone Angely Junior Primary Care Provider DR. 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) Referral Organization [facility] Referring Provider First Name Angely Referring Provider Last Name Vernon Referring Provider Speciality [facility] Referred Provider Pulmonary MedicineIndra Referred Provider [facility] General Notes Kristan Sevilla 07/22/2024 02:09:39 PM >Referral sent to Pulm (P: [phone]) Referral Priority Routine Immunizations Vaccine Route Administration Date Status Comme nts Tdap (Boostrix) Prefilled syringe Unknown 07/05/2016 Ad ministered Tdap (Boostrix) Prefilled syringe Unknown 08/13/2016 Ad ministered Tdap (Boostrix) Prefilled syringe Unknown 06/29/2024 Ad ministered Moderna [phone] fall formu lation 12+ years Unknown 06/15/2024 [...] with others, in a hotel, in a fpc, living outside on the street, on a beach, or in a park) Are you worried about losing your housing? No What is the highest level of school that you have finished? Less than a high school degree What is your current work situation? 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 Stress is when someone feels tense, nervous, anxious, or cant sleep at night because their mind is troubled A little bit In the past year have you sp ent more than 2 nights in a row in a fci, mcc, shelter center, or juvenile correctional facility? No Are [...] also a PT, are part of the [facility] refugee program and have all of their SDMD needs met. User [place] Drug/Alcohol: Social Info [...] Status W/U Status Risk Notes Problem Leukocytosis (639483762) Elevated WBC count (D72.829) Active confirmed Apr 2024 WB C 14. recheck today. no fevers. 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 Blue film over eye with cut noted in left eye. referral to Opthamology. positive quantiferon gold (still waiting on chest xray read as of 07/07/24); rpr and hiv testing was negative. 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 confirmed XRAY results show no active TB - will need treated for latent TB Encounters Encounter Location Date Provider Diagnosis [facility] [address] [place] [address] 07/28/2024 Angely Junior [facility] [address] [place] [address] 07/21/2024 Angely Junior Positive QuantiFERON-TB Gold test R76.12 Assessments Encounter Date Diagnosis (ICD Code) Assessment Notes Treatment Notes Treatment Clinical Notes Section Notes 07/21/2024 Positive QuantiFERON-TB Gold test (ICD-10 - R76.12) XRAY results show no active TB - will need treated for latent TB Plan Of Treatment Pending Test Test Name Order Date X ray : Chest with 2 views 05/06/2024 Chest X-ray [place] and lateral 06/02/2024 Insurance Providers Payer Name Payer Address Payer Phone Subscriber Number Group Number Insured Name Patient Relationship to Insured Coverage Start Date Coverage End Date [place] of [place] - MEDICAL [address] T[place] Christina [id number] Esther Torre Self - patient is the insured 4 Medical (General) History Medical History History ICD Code blindness chronic pain Hospitalization History Reason Date(Month/Year) eye surgery 2018
== END 2025-07-09 10:26 | disposition home or self-care (01) ==
LOC: HO.HMCFMS 09:23
PROVIDERS: Visit Provider Student in an Organized Health Care Education/Training Program
DX: D50.9 Iron deficiency anemia, unspecified (principal); H40.9 Unspecified glaucoma; R63.6 Underweight; E05.90 Thyrotoxicosis, unspecified without thyrotoxic crisis or storm; R35.0 Frequency of micturition; Z59.819 Housing instability, housed unspecified; Z59.41 Food insecurity; Z23 Encounter for immunization

== ENCOUNTER → 2025-07-09 09:23 | Outpatient (BNVA) | payer MEDICAID, SELFPAY | PROVIDERS: Visit Provider Student in an Organized Health Care Education/Training Program | DX: D50.9 Iron deficiency anemia, unspecified (principal); Z23 Encounter for immunization; H40.9 Unspecified glaucoma; R63.6 Underweight; Z68.1 Body mass index [BMI] 19.9 or less, adult; E05.90 Thyrotoxicosis, unspecified without thyrotoxic crisis or storm; R35.0 Frequency of micturition; Z59.819 Housing instability, housed unspecified; Z59.41 Food insecurity; Z13.31 Encounter for screening for depression; Z13.39 Encounter for screening examination for other mental health and behavioral disorders | CPT/HCPCS: 90471; 90656; 99211; 99212 ==

== ENCOUNTER 2025-07-23 10:33 | Outpatient (AMB) | payer MEDICAID, SELFPAY ==
--- NOTE | 2025-07-23 10:34 | A.OFFVIS_ITS ---
Vital Signs 07/23/25 10:44 Height 4 ft 9 in Weight 70 lb 8.767 oz BMI 15.3 BP 106/60 Blood Pressure Location Rt brachial Position Sitting Pulse 79 Pulse Source Pulse Oximeter Pulse Oximetry (%) 97 Oxygen Delivery Method Room Air Intake Visit Reasons: Thyrotoxicosis Intake Note: NEW Patient presents today to establish care for Multinodular Thyroid: Pharmacy Benefits Coordinator Required: Yes Pharmacy Benefits Coordinator Language: Setswana Pharmacy Benefits Coordinator Services: Pharmacy Benefits Coordinator Present Pharmacy Benefits Coordinator Name: Jasson Moran [phone] Voy[place] Information Interpreted: non-clinical & clinical Accompanied by: Both Sons Allergies No Known Allergies Allergy (Verified 07/23/25 10:46) Medication List - Last Reconciled 07/23/25 by Louie Vizcarra MD ascorbic acid (vitamin C) 500 mg PO DAILY ferrous sulfate 325 mg PO DAILY polyethylene glycol 3350 17 grams PO BID tobramycin-dexamethasone 0.3-0.1 % 1 appl ophthalmic (eye) TID 14 days HPI Comments Details: 69 years old glaucoma, iron deficiency anemia, low BMI, seen in office for initial evaluation and management of subclinical hypothyroidism. Patient here with hers 2 sons. Visit completed with the help of an manufacturing specialist. Communication is difficult due to language barrier and poor medical literacy. PCP ordered blood work and incidentally found that patient had suppressed TSH, normal FT4, concerning for subclinical hyperthyroidism. Palpitations: no Heat intolerance: No, she is mostly cold all the time Weight loss (amount, over what period): reported weight loss, unclear amount. She is reported to have poor appetite overall. Tremor: no hand tremors Anxiety/irritability: no Insomnia: yes, difficulty falling sleep Sweating: no Diarrhea/increased stool frequency: no Muscle weakness: no Eye symptoms (redness, pain, proptosis, diplopia, vision changes): eye pain, she had surgery in her eyes for Glaucoma. No vision in R eye. Neck pain or swelling: no swelling, pain or dysphagia Previous episodes of hyperthyroidism: no Family history of thyroid disease: no Recent iodine exposure (contrast, amiodarone, supplements): no Current and prior treatments (antithyroid drugs, beta-blockers, LARSON, surgery): none Biotin: no Physical exam: General: frail appearing, undwrweight. NAD. Neck/Thyroid: Thyroid not palpable, no nodules. Eyes: No conjunctival injection, not lid lag or proptosis CV: RRR, no murmur. No edema. Resp:Lungs clear to auscultation bilaterally Abdomen: Soft, nontender. nondistended Extremities/Neuro: No weakness or tremor of outstretched hands Laboratory Tests 06/25/25 13:11 TSH 0.01 L Free T4 1.35 PFSH Medical History Urinary frequency Subclinical hyperthyroidism Glaucoma Iron deficiency anemia Underweight Surgical History (Updated 07/23/25 @ 10:47 by JAYY Nix) Hx of eye surgery Family History Mother No problems noted. Father No problems noted. Social History Housing: Apartment Patient Tobacco Use Status: Never used Tobacco service: No Current occupational status: retired Cognitive needs: Yes (needs wheelchair, cane) Hearing needs: No Vision needs: No Physical Exam Vital Signs: Last Vital Signs Pulse 79 07/23/25 10:44 BP 106/60 07/23/25 10:44 Pulse Ox 97 07/23/25 10:44 Oxygen Delivery Method Room Air 07/23/25 10:44 BMI result Body Mass Index 15.3 Assessment & Plan Assessment & Plan (1) Subclinical hyperthyroidism: Code(s): E05.90 - Thyrotoxicosis, unspecified without thyrotoxic crisis or storm Category: Medical Plan: Abnormal thyroid function tests Her suppressed TSH is likely consequence of her low weight/?malnutrition, giving a ESS-like picture. She does not have any evidence other clinical evidence to make me suspect hyperthyroidism. Advised the patient to monitor for symptoms of hyperthyroidism, as she is more sensitive to excess hormones given her low weight and age. I would advise to monitor, repeat TFTs + thyroid antibodies in 3 months. Harness Installer/dietitian referral Follow up in 3 months Plan 45 minutes spent reviewing previous records, labs, imaging, education and documenting in the chart Orders: Orders Free T4 (Free Thyroxine) Today E05.90 - Thyrotoxicosis, unspecified without thyrotoxic crisis or storm Thyrotropin Receptor Antibody Today E05.90 - Thyrotoxicosis, unspecified without thyrotoxic crisis or storm TSH reflex Free T4 Today E05.90 - Thyrotoxicosis, unspecified without thyrotoxic crisis or storm Thyroid Stimulating Immunoglob Today E05.90 - Thyrotoxicosis, unspecified without thyrotoxic crisis or storm Referrals [facility] Nutrition Referral R63.6 - Underweight Coding Level of Care Code Complex visit Add On G2211 Diagnoses Subclinical hyperthyroidism E05.90
[2025-07-23 10:44] VITALS: BP 106/60; PULSE 79; O2SAT 97; BMI 15.3
== END 2025-07-23 11:24 | disposition home or self-care (01) ==
LOC: HO.ENCR 10:34
PROVIDERS: PCP Student in an Organized Health Care Education/Training Program; Visit Provider Student in an Organized Health Care Education/Training Program
DX: E05.90 Thyrotoxicosis, unspecified without thyrotoxic crisis or storm (principal)
CPT/HCPCS: 99204

== ENCOUNTER → 2025-07-23 10:33 | Outpatient (BNVA) | payer MEDICAID, SELFPAY | PROVIDERS: PCP Student in an Organized Health Care Education/Training Program; Visit Provider Student in an Organized Health Care Education/Training Program | DX: E05.90 Thyrotoxicosis, unspecified without thyrotoxic crisis or storm (principal); R63.6 Underweight | CPT/HCPCS: 99202 ==